=== PATIENT | male | born 1995 ===

== ENCOUNTER 2018-03-02 13:55 | Emergency (ER) | payer BC, OTHER ==
[~2018-03-02 13:55] MED LIST: [UNRECOGNIZED DRUG - REMARK]
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
[2018-03-02 14:25] VITALS: BP 139/84
[2018-03-02 14:44] LABS: PLATELET COUNT, AUTOMATED 207 K/uL (150-450)
[2018-03-02] MEDS ORDERED: BUPR-474 PO (15:51)
== END 2018-03-02 16:31 ==
LOC: ER 14:00
DX: F32.9 Major depressive disorder, single episode, unspecified (principal); R45.851 Suicidal ideations
CPT/HCPCS: 80305; 80320; 80329; 81001; 82040; 82247; 82310; 82374; 82435; 82565; 82947; 83735; 84075; 84132; 84155; 84295; 84443; 84450; 84460; 84520; 85025; 99284

== ENCOUNTER 2018-03-02 16:12 | Inpatient (IN) | payer OTHER ==
[~2018-03-02] VITALS: Ht 190.5 cm; Wt 76.2 kg
[~2018-03-02 16:12] MED LIST changes: +BUPR-474 PO
[2018-03-02 17:12] VITALS: BP 120/75
[2018-03-02] MEDS ORDERED: ACETAMINOPHEN 325 MG TAB PO PRN (17:40)
[2018-03-02] MEDS ORDERED: hydrOXYzine PAMOATE 25 MG CAP PO PRN (17:40)
[2018-03-02] MEDS ORDERED: NICOTINE CARTRIDGE 1 EA PO PRN (17:40)
[2018-03-02] MEDS ORDERED: MAG HYD/AL HYD/SIMETH 30ML UDC PO PRN (17:40)
[2018-03-02] MEDS: NICOTINE INH SYSTEM 10 MG/INH INH PRN (17:50)
[2018-03-03 06:22] VITALS: BP 100/60
[2018-03-03] MEDS: MULTIVITAMINS PO SCH (08:21)
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
[2018-03-04 08:15] VITALS: BP 113/83
[2018-03-04] MEDS: MULTIVITAMINS PO SCH (08:16)
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
[2018-03-04] MEDS: buPROPion XL 150 MG TABCR PO SCH (12:20)
[2018-03-04 16:44] VITALS: BP 126/70
[2018-03-04] MEDS: NICOTINE INH SYSTEM 10 MG/INH INH PRN ×2 (17:56→21:50)
[2018-03-05] MEDS: MULTIVITAMINS PO SCH (08:35)
[2018-03-05] MEDS: buPROPion XL 150 MG TABCR PO SCH (08:35)
--- NOTE | 2018-03-05 10:33 | BHS Progress Note ---
BHS - Subjective Progress Notes Subjective "Right now it's just a matter of calming myself down before things happen." Rating depression 3/10, anxiety 4/10 "there's nothing really stressing myself out today." Recent stressors: car needing transmission, must now purchase new vehicle, grandmother in assisted living facility Sleeps 7-8 hours, energy level and appetite sufficient History of suicide attempt age 15, attempted by hanging Reports use of cannabis, not daily, once zeke 4-5 days Emma for counseling two months ago, Sandie Schneider for medication management and was started on Wellbutrin Diagnosed fifth grade with autism by the [facility] in [place], this is first inpatient psychiatric admit, voluntary admission History of multiple learning disorders, depression, cannabis abuse Admitted after becoming upset after missing an appointment, isolated and had meltdown with mother bringing him in Had family visit yesterday, "It didn't really go well. I really don't like it when people come to see me and I'm in an awkward position. I really don't want to go to the [facility] for [place] and see my cousin." Tearful during interview as discusses family stress and possibility of having to see family members during holiday, feels they have not supported him in some struggles Suicidal Ideation: None Homicidal Ideation: None Suicidal Ideation: None Homicidal Ideation: None BHS - Objective Physical Exam Vital Signs Current Medications Medications (Trade) Dose Ordered Sig/Frank Route PRN Reason Start Time Stop Time Status Last Admin Dose Admin Acetaminophen (Tylenol(*)325 Mg Tab (Or Equiv)) 650 mg Q4H PRN PO HEADACHE 03/02/18 17:40 04/01/18 17:39 Al Hydrox/Mg Hydrox/Simethicone (Maalox(*) 30 ml Udcup (Or Equiv)) 30 ml Q4H PRN PO DYSPEPSIA 03/02/18 17:40 04/01/18 17:39 Multivitamins (Thera-M Enhanced Tab (Or Equiv)) 1 each QDAY PO 03/03/18 09:00 04/02/18 08:59 03/05/18 08:35 Hydroxyzine Pamoate (Vistaril(*) 25 Mg Cap (Or Equiv)) 50 mg Q6H PRN PO ANXIETY/INSOMNIA 03/02/18 17:40 04/01/18 17:39 Nicotine (Nicotrol Inhaler 10 Mg/Inh (Or Equiv)) 10 mg Q2H PRN INH NICOTINE REPLACEMENT 03/02/18 17:40 04/01/18 17:39 03/04/18 21:50 Miscellaneous Information (Nicotrol Cartridge) 1 each PRN PRN PO NICOTINE REPLACEMENT 03/02/18 17:40 04/01/18 17:39 Bupropion HCl (Wellbutrin Xl 150 Mg Tabcr (Or Equiv)) 300 mg QDAY PO 03/04/18 11:15 04/03/18 11:14 03/05/18 08:35 Medications (Trade) Dose Ordered Sig/Frank Route PRN Reason Start Time Stop Time Status Last Admin Dose Admin Bupropion HCl (Wellbutrin Xl 150 Mg Tabcr (Or Equiv)) 300 mg QDAY PO 03/04/18 11:15 04/03/18 11:14 03/05/18 08:35 Multivitamins (Thera-M Enhanced Tab (Or Equiv)) 1 each QDAY PO 03/03/18 09:00 04/02/18 08:59 03/05/18 08:35 Nicotine (Nicotrol Inhaler 10 Mg/Inh (Or Equiv)) 10 mg Q2H PRN INH NICOTINE REPLACEMENT 03/02/18 17:40 04/01/18 17:39 03/04/18 21:50 Vital Signs Date Time Temp Pulse Resp B/P (MAP) Pulse Ox O2 Delivery O2 Flow Rate FiO2 03/04/18 16:44 98.4 58 126/70 (88) 97 Room Air Muscle Strength and Tone: WNL Gait and Station: Steady [facility] Medications Reviewed: Side Effects, Benefits of Medication, Risks Allergies Reviewed: No Mental Status Exam General Appearance: Casual, Well Groomed, Good Eye Contact, Cooperative, Polite, Good Interaction Speech: Clear, Spontaneous, Normal Rate, Normal Rhythm, Normal Volume, Normal Tone Mood: Dysthmic/Depressed (Mood euthymic during interview, smiling and interacting well with team members, does report depression due to stressors ); No Euthymic, No Hyperthymic (minimal depression 3/10) Affect: No Full and Appropriate, No Calm; Sad; No Neutral, No Flat, No Withdrawn; Tearful (Becomes very tearful when talks of family members and felt lack of support); No Anxious, No Agitated Thought Process: Organized, Logical, Goal Directed; No Loose Associations, No Flight of Ideas Thought Content: No Suicidal Ideation, No Homicidal Ideation, No Delusions, No Auditory Halllucinations, No Visual Hallucinations, No Thought Broadcasting, No Ideas of Reference, No Obsessions, No Compulsions, No Other Sensorium: Clear Cognition: Alert & Oriented-Person, Alert & Oriented-Place, Alert & Oriented- Time, Jjpcn-Aigpgvcp-Islqdamco Memory: Immediate, Recent, Remote Intelligence: Average Insight Judgment: No Intact, No Appropriate; Fair Microbiology Medications (Trade) Dose Ordered Sig/Frank Route PRN Reason Start Time Stop Time Status Last Admin Dose Admin Bupropion HCl (Wellbutrin Xl 150 Mg Tabcr (Or Equiv)) 300 mg QDAY PO 03/04/18 11:15 04/03/18 11:14 03/05/18 08:35 Multivitamins (Thera-M Enhanced Tab (Or Equiv)) 1 each QDAY PO 03/03/18 09:00 04/02/18 08:59 03/05/18 08:35 Nicotine (Nicotrol Inhaler 10 Mg/Inh (Or Equiv)) 10 mg Q2H PRN INH NICOTINE REPLACEMENT 03/02/18 17:40 04/01/18 17:39 03/04/18 21:50 [facility] Assessment and Plan [id number] Encounter Date: Mar 05, 2018 [id number] Encounter Time: 10:26 [facility] Plan: Admit to Unit, Necessary Precautions, Individual/Group Therapy, Admin/Titrate Meds, Educate Patient Multpiple Antipsychotics Used: No Problems: (1) Adjustment disorder with mixed anxiety and depressed mood Status: Acute (2) Autism spectrum disorder Status: Chronic (3) Cannabis abuse Status: Chronic (4) Suicidal ideation Status: Resolved Condition Continue current medication and treatment Continue completion of wellness and recovery plan targeting emotional regulation ANDREA CHARLES NP Mar 05, 2018 10:33
[2018-03-05 10:50] VITALS: BP 124/73
[2018-03-05] MEDS: NICOTINE INH SYSTEM 10 MG/INH INH PRN (11:12)
[2018-03-05 19:19] VITALS: BP 122/59
[2018-03-06 03:34] VITALS: BP 124/76
[2018-03-06] MEDS: buPROPion XL 150 MG TABCR PO SCH (07:59)
[2018-03-06] MEDS: MULTIVITAMINS PO SCH (08:00)
[2018-03-06] MEDS ORDERED: NIC10R INH (10:01)
[2018-03-06] MEDS ORDERED: MULT-1379 PO (10:01)
[2018-03-06] MEDS: NICOTINE INH SYSTEM 10 MG/INH INH PRN (10:54)
--- NOTE | 2018-03-07 11:13 | SCHAAF DISCHARGE ---
DATE OF ADMISSION: March 02, 2018 DATE OF DISCHARGE: March 06, 2018 ATTENDING PHYSICIAN Ray Thayer MD The patient was seen at approximately 09:00 hours on the a.m. of March 06, 2018 for note concerning this dictation. FINAL DIAGNOSES 1. Persistent depressive disorder. 2. History of Autism spectrum, mild in nature. 3. Cannabis use disorder, moderate. 4. The patient has supportive family relationship with mother. REASON FOR ADMISSION This is a 23-year-old male again suffering from the aforementioned diagnoses. The patient has had increasing depressive symptoms at home. The patient was brought in by his mother to the emergency room for further evaluation with increasing depression and vague suicidal thoughts. The patient had been recently started on Wellbutrin XL and had been recently titrated to 300 mg daily. The patient reported good response for focus, attention, and depressive symptoms overall. The patient was able to identify multiple recent stressors in his life which upset the patient, leading to the admission. The patient also using cannabis, smoking some nicotine as well. The patient was brought into the unit without incident. Brief periods of mood variability did continue on the unit. However, no parasuicidal behaviors were noted and patient overall interacted appropriately. The patient was known to be accepting of being in a behavioral health unit which is outside of his normal element. The patient continued to improve. The patient interacting well with his mother at time of discharge. The patient indicated an understanding that he should stop all forms of cannabis use and limit nicotine use and preferably stop. The patient was polite and cooperative at the time of discharge and patient was discharged to home. PHYSICAL EXAMINATION Please see emergency room note. Notable for 23-year-old male with previous diagnosis of Autism spectrum disorder. Vital signs at the time of admission to [facility]: Temperature 99.1, pulse 63, respiratory rate 16, blood pressure 120/75 and pulse oximetry 98% on room air. Vital signs at the time of discharge: Temperature 98.2, pulse 64, respiratory rate 15, blood pressure 124/76 and pulse oximetry 99% on room air. LABORATORY DATA At the time of admission CBC unremarkable. CMP unremarkable. TSH 1.11. Urinalysis unremarkable. Toxicology screen positive for cannabinoids, otherwise negative for other substances of abuse and a nondetectable serum alcohol level. MENTAL STATUS EXAMINATION GENERAL APPEARANCE, BEHAVIOR AND ATTITUDE: At the time of discharge, this is polite, cooperative 23-year-old male, interacting well with this provider, treatment team staff, and patient's mother in the room. No psychomotor agitation or retardation noted. The patient able to make fair to good eye contact. Some hand tapping movements noted. No periods of tearfulness. SPEECH: Considered baseline and largely within normal limits. MOOD: Described as improved. AFFECT: Full and times and mood-congruent. THOUGHT PROCESSES: Appeared goal-directed and logical. The patient wanting to discharge to home, no loose associations or flight of ideas were detected. THOUGHT CONTENT: Free of auditory or visual hallucinations, ideas of reference, thought broadcastings, delusions, obsessions or compulsions. The patient is adamantly denying suicidal or homicidal ideation. SENSORIUM: Clear. COGNITION: Alert and oriented to person, place, time and situation. MEMORY: Immediate, recent and remote was estimated intact. INTELLIGENCE: Average in some areas, patient noted to have multiple learning disabilities. INSIGHT AND JUDGMENT: Considered grossly intact in the absence of substance use and appropriate for return to home. RESULTS OF TESTING Imaging: None. Laboratory data: See above. Psychological testing: Not done. CONSULTATIONS None. TREATMENT Patient received medications, participated in individual and group therapy. HOSPITAL COURSE The patient remained on Wellbutrin 300 mg XL as prescribed by outpatient provider. The patient's stressors concerning the admission and increasing depressive symptoms seemed likely related to multiple identifiable stressors. Please see the History and Physical for full details. The patient continued to improve. No parasuicidal behaviors were seen and patient was discharged to home. CONDITION OF PATIENT ON DISCHARGE Stable. Considered a minimal risk to himself or others, appropriate for ongoing management on an outpatient basis. DISPOSITION The patient was discharged to home. He would continue to follow up with outpatient providers as scheduled. The Crisis line was given should symptoms return. The patient agreed to stop cannabis, was strongly encouraged to stop nicotine as well and take medications as prescribed. DISCHARGE MEDICATIONS 1. Wellbutrin XL 300 mg q a.m. 2. Multivitamin with minerals daily. 3. The patient could remain on over the counter nicotine replacement as needed. 4. May use Benadryl over the counter 25 mg to 50 mg p.o. q 6 hours p.r.n. for anxiety and insomnia. The risks, benefits and alternatives of the above discharge plan were discussed. Informed consent was given to proceed with the above discharge plan by this patient and the patient's mother present at time of discharge. MTDD
== END 2018-03-06 15:25 | disposition home or self-care (01) | DRG 881 ==
LOC: BHS 16:12
PROVIDERS: ADMIT Psychiatry & Neurology Psychiatry; ATTEND Psychiatry & Neurology Psychiatry
DX: F34.1 Dysthymic disorder (principal); R45.851 Suicidal ideations; F84.0 Autistic disorder; F15.10 Other stimulant abuse, uncomplicated; F17.210 Nicotine dependence, cigarettes, uncomplicated; F40.10 Social phobia, unspecified; Z81.1 Family history of alcohol abuse and dependence; Z81.8 Family history of other mental and behavioral disorders; Z91.410 Personal history of adult physical and sexual abuse; Z62.811 Personal history of psychological abuse in childhood